=== PATIENT | female | born 1945 | race Caucasian/White ===

== ENCOUNTER 2018-05-14 10:40 | Emergency (ER) | payer MEDICARE ==
[2018-05-14] MEDS ORDERED: Sodium Bicarb 50 MEQ/50 ML Abboject 8.4% SYRINGE ONE (19:37)
[2018-05-14] MEDS ORDERED: EPINEPHrine 1 MG/10 ML Abboject SYRINGE ONE (19:37)
== END 2018-05-14 10:59 | disposition expired ==
LOC: ERS 10:40 → EDBD 10:40 → ERS 10:59
DX: I46.9 Cardiac arrest, cause unspecified (principal)
CPT/HCPCS: 36416; 94760; 96374; 96375; 96376; J0171